=== PATIENT | female | born 1975 ===

== ENCOUNTER 2020-10-04 08:18 | Day surgery (SDC) | payer OTHER ==
[2020-10-04] MEDS ORDERED: MORGIDOX100 MG PO (12:33)
[2020-10-04] MEDS ORDERED: NAPR500T14 PO (12:33)
== END 2020-10-04 16:25 | disposition home or self-care (01) ==
LOC: CIR.AMB 08:18
PROVIDERS: ATTEND Obstetrics & Gynecology
DX: D25.0 Submucous leiomyoma of uterus (principal); N84.0 Polyp of corpus uteri; Z30.432 Encounter for removal of intrauterine contraceptive device; Z20.822 Contact with and (suspected) exposure to COVID-19